=== PATIENT | male | born 1980 | race Caucasian/White ===

== ENCOUNTER 2024-06-30 22:07 | Emergency (ER) | payer SELFPAY ==
--- NOTE | 2024-06-30 22:22 | PC.NURSE ---
PT INFORMED SECURITY THAT THEY ARE GOING, THEY WILL NOT WAIT LONGER.
== END 2024-06-30 22:24 | disposition left against medical advice (07) ==
PROVIDERS: Emergency Provider Emergency Medicine
DX: Z53.21 Procedure and treatment not carried out due to patient leaving prior to being seen by health care provider (principal)

== ENCOUNTER → 2025-03-26 | Outpatient (CLI) | payer OTHER, SELFPAY ==
--- NOTE | 2025-03-26 14:54 | XR_ITS ---
Examination: Knee, left , 3 views Technique: Knee AP, lateral, oblique 3 views Date and time of exam: March 26, 2025 1622 hours INDICATIONS: Knee pain, history chondromalacia FINDINGS: Status post anterior cruciate ligament repair Moderate narrowing medial lateral joint spaces as well as patellofemoral joint No acute fracture Small knee effusion IMPRESSION: Moderate tricompartment osteoarthritis
== END | disposition home or self-care (01) ==
PROVIDERS: PCP Family Medicine; Referring Provider Family Medicine; Visit Provider Family Medicine
DX: M17.12 Unilateral primary osteoarthritis, left knee (principal)
CPT/HCPCS: 73562